=== PATIENT | female | born 1975 | race Native Hawaiian/Other Pacific Islander ===

== ENCOUNTER 2020-02-04 08:45 | Outpatient (CLI) | payer BC | END 2020-02-04 19:04 | disposition home or self-care (01) | LOC: CT 08:45 | DX: R10.84 Generalized abdominal pain (principal) ==

== ENCOUNTER 2021-02-10 10:05 | Outpatient (CLI) | payer BC | END 2021-02-10 19:11 | disposition home or self-care (01) | LOC: MRI 10:05 | PROVIDERS: ATTEND Family Medicine | DX: E04.1 Nontoxic single thyroid nodule (principal); R22.1 Localized swelling, mass and lump, neck; M43.06 Spondylolysis, lumbar region; M54.16 Radiculopathy, lumbar region ==